=== PATIENT | female | born 1975 | race Caucasian/White ===

== ENCOUNTER 2022-09-16 12:47 | Outpatient (CLI) | payer OTHER, SELFPAY ==
--- NOTE | ~2022-09-16 | MMUS_ITS ---
EXAMINATION: MM diagnostic yadira BI w rosy, US breast BI complete HISTORY: Reportedly abnormal outside screening mammogram TECHNIQUE: Additional 3-D tomosynthesis images of both breasts were performed and synthetic 2-D image s were generated. CAD analysis was submitted and interpreted. High resolution bilateral complete maged st ultrasound including all 4 quadrants and subareolar areas was performed. COMPARISON: 08/26/2022 bilateral screening mammogram BREAST PARENCHYMAL COMPOSITION: There are scattered areas of fibroglandular density. FINDINGS: MAMMOGRAPHIC FINDINGS: No suspicious mass or architectural distortion, malignant calcification, skin thickening or retractio n is detected. ULTRASOUND: Right breast: 3:00 4 cm from nipple: Oval parallel circumscribed 3 x 3.8 mm x 4.4 mm sonolucency with through trans mission, likely a small cyst 9:00 5 cm from nipple: 2 x 2.5 mm circumscribed sonolucency No suspicious mass or shadowing of the right breast is detected Left breast: No suspicious mass or shadowing of the left breast is detected. No other significant son ographic finding. IMPRESSION: 1. No mammographic evidence of malignancy 2. Routine annual mammographic screening is recommended BI-RADS Category 2: Benign finding(s). Reviewed, dictated and finalized at location A. [facility] IMPRESSION: 1. No mammographic evidence of malignancy 2. Routine annual mammographic screening is recommended BI-RADS Category 2: Benign finding(s).
== END 2022-09-16 12:48 ==
LOC: MICIMG 12:50
PROVIDERS: PCP Nurse Practitioner; Visit Provider Nurse Practitioner
DX: R92.8 Other abnormal and inconclusive findings on diagnostic imaging of breast (principal)
CPT/HCPCS: 76641; 77062; 77066; G0279

== ENCOUNTER 2023-08-19 01:13 | Day surgery (SDC) | payer OTHER, SELFPAY ==
[2023-08-12 12:56] VITALS: BMI 32.0
[2023-08-19 11:57] VITALS: BP 115/70; PULSE 80; RESP 18; TEMP 36.6; O2SAT 98
[2023-08-19] MEDS: LACTATED RINGERS 1,000 ML 150 ML IV CONT (12:14)
--- NOTE | 2023-08-19 12:17 | PM.HPGS ---
History of Present Illness History of Present Illness Consent: Risks, benefits, and alternatives have been discussed and questions answered. Patient agrees to proceed with procedure. Chief complaint: neoplasm screening Narrative: Laura Christensen is a 47 year old female Presents for screening colonoscopy. Patient has current weight appetite bowel movements are normal. Patient denies abdominal pain. She has had no bleeding. Family history noncontributory. Review of Systems Review of Systems: Review of systems noncontributory. [facility] Past Medical History Medical History Abnormal mammogram of left breast Anxiety Combined hyperlipidemia Depression Hypothyroidism (acquired) Prediabetes Surgical History Surgical History No significant past surgical history Family History Family History Mother Hypertension Cerebrovascular accident Grandparent Lung cancer maternal grandparent Cancer paternal grandparent Social History Social History Smoking packs per day: 0.25 Smoking cigarettes per day: 5.0 Smoking status: Former smoker Tobacco type: cigarettes Alcohol intake: current Drinks per week: 3 Substance use: never Substance use type: does not use Lack of Transportation: No Lack of Food: Never True Current Housing: I Have Housing Concerned About Future Housing: No Difficulty Paying Gas/Electric Bills: No Difficulty Paying for Meds: No Currently Unemployed: No Education: High School Diploma/GED Difficulty w/ Childcare or Family Care: No Living arrangements: with family Additional living arrangements comments: Occupation/Education: occupation Gender identity (if verbalized by the patient): Female Sexual Orientation (if Verbalized by the Patient): Straight or Heterosexual Spiritual care concerns: No Agree to blood products: Yes Meds Home Medications and Allergies Home Medications Medication Instructions Recorded Confirmed Type bupropion HCl 150 mg 24 hr tablet, 150 mg PO QAM #90 tabs 06/10/23 08/12/23 Rx extended release (Wellbutrin XL) levothyroxine 88 mcg tablet 88 mcg PO DAILY #90 tabs 07/14/23 08/12/23 Rx bupropion HCl 300 mg 24 hr tablet, 300 mg PO QAM #90 tabs 08/12/23 08/19/23 Rx extended release (Wellbutrin XL) dextroamphetamine-amphetamine 10 10 mg PO DAILY #30 tabs 08/12/23 08/12/23 Rx mg tablet (Adderall) rosuvastatin 20 mg tablet (Crestor) 20 mg PO DAILY #90 tabs 08/12/23 08/19/23 Rx Allergies Allergy/AdvReac Type Severity Reaction Status Date / Time No Known Allergies Allergy Verified 08/19/23 11:53 Vital Signs Vital Signs - 24 hr 08/19/23 11:57 Temperature 97.8 F Pulse Rate 80 Respiratory Rate 18 Blood Pressure 115/70 Pulse Oximetry 98 Oxygen Delivery Room Air Exam Narrative: Physical exam reveals patient to be alert. Vital signs stable. HEENT exam is unremarkable. Patient is anicteric. Lungs are clear to auscultation and percussion. Heart is without murmur or extra sounds. Abdomen bowel sounds are present soft nontender with no organomegaly. Digital external rectal exam is normal. Assessment and Plan Assessment and plan (1) Colon cancer screening: Code(s): Z12.11 - Encounter for screening for malignant neoplasm of colon Status: Acute Assessment and Plan: Patient presents for screening colonoscopy. She appears to be at average risk for colon polyps. Further recommendations may be given after endoscopy.
--- NOTE | 2023-08-19 12:22 | WPDANESEPPF ---
Anes - Initial Pre Proc Eval Procedure: Operation Date: 08/19/23 13:00 Proposed Procedures p Screening Colonoscopy - Adonay Sow MD Date/Time: 08/19/23 12:22 Surgeon: Adonay Sow MD Pre Op Diagnosis: neoplasm screening Patient Data Age: 47 Gender: F Height: 1.73 m Weight: 90.2 kg Last Vital Signs Temp 97.8 F 08/19/23 11:57 Pulse 80 08/19/23 11:57 Resp 18 08/19/23 11:57 BP 115/70 08/19/23 11:57 Pulse Ox 98 08/19/23 11:57 O2 Del Method Room Air 08/19/23 11:57 Allergies Allergy/AdvReac Type Severity Reaction Status Date / Time No Known Allergies Allergy Verified 08/19/23 11:53 Home Medications Medication Instructions Recorded Confirmed Type bupropion HCl 150 mg 24 hr tablet, 150 mg PO QAM #90 tabs 06/10/23 08/12/23 Rx extended release (Wellbutrin XL) levothyroxine 88 mcg tablet 88 mcg PO DAILY #90 tabs 07/14/23 08/12/23 Rx bupropion HCl 300 mg 24 hr tablet, 300 mg PO QAM #90 tabs 08/12/23 08/19/23 Rx extended release (Wellbutrin XL) dextroamphetamine-amphetamine 10 10 mg PO DAILY #30 tabs 08/12/23 08/12/23 Rx mg tablet (Adderall) rosuvastatin 20 mg tablet (Crestor) 20 mg PO DAILY #90 tabs 08/12/23 08/19/23 Rx Patient hx anesthesia problems: none Family hx anesthesia problems: none Results Review: All pre-operative results and documents have been reviewed as part of the pre-operative evaluation. [facility] Past Medical History Medical History Abnormal mammogram of left breast Anxiety Combined hyperlipidemia Depression Hypothyroidism (acquired) Prediabetes Surgical History Surgical History No significant past surgical history Family History Family History Mother Hypertension Cerebrovascular accident Grandparent Lung cancer maternal grandparent Cancer paternal grandparent Social History Social History Smoking packs per day: 0.25 Smoking cigarettes per day: 5.0 Smoking status: Former smoker Tobacco type: cigarettes Alcohol intake: current Drinks per week: 3 Substance use: never Substance use type: does not use Lack of Transportation: No Lack of Food: Never True Current Housing: I Have Housing Concerned About Future Housing: No Difficulty Paying Gas/Electric Bills: No Difficulty Paying for Meds: No Currently Unemployed: No Education: High School Diploma/GED Difficulty w/ Childcare or Family Care: No Living arrangements: with family Additional living arrangements comments: Occupation/Education: occupation Gender identity (if verbalized by the patient): Female Sexual Orientation (if Verbalized by the Patient): Straight or Heterosexual Spiritual care concerns: No Agree to blood products: Yes Anes - Eval Final PreProcedure Day of Procedure 08/19/23 12:22 Patient weight: obese Heart: regular rate and rhythm Lungs: clear to auscultation Airway: Mallampati scale class II Neurological: alert and oriented Last oral intake: >/= 8 hours ASA classification: II Emergent: no Anesthetic plan: proceed Anesthesia type and monitoring: general GIVS and standard monitoring Results Review: All pre-operative results and documents have been reviewed as part of the pre-operative evaluation. Informed Consent: The patient's anesthetic plan and its attendant risks and benefits were discussed with the patient/family/POA. Questions were solicited and answers provided to the satisfaction of the patient/family/POA.
[2023-08-19 13:19] VITALS: BP 99/64; PULSE 68; RESP 23; O2SAT 99
[2023-08-19 13:29] VITALS: BP 106/65; PULSE 73; RESP 22; O2SAT 100
[2023-08-19 13:39] VITALS: BP 118/80; PULSE 70; RESP 14; O2SAT 100
== END 2023-08-19 13:45 | disposition home or self-care (01) ==
PROVIDERS: PCP Family Medicine; Visit Provider Internal Medicine Gastroenterology
PROC: 0DJD8ZZ Inspection of Lower Intestinal Tract, Via Natural or Artificial Opening Endoscopic (ICD-10-PCS; CPT 45378; principal; 2023-08-19 13:00)
DX: Z12.11 Encounter for screening for malignant neoplasm of colon (principal); D12.2 Benign neoplasm of ascending colon; D12.5 Benign neoplasm of sigmoid colon; K63.5 Polyp of colon; K57.30 Diverticulosis of large intestine without perforation or abscess without bleeding; K64.8 Other hemorrhoids; E03.9 Hypothyroidism, unspecified; F41.9 Anxiety disorder, unspecified; F32.A Depression, unspecified; Z87.891 Personal history of nicotine dependence; E66.9 Obesity, unspecified; Z68.30 Body mass index [BMI] 30.0-30.9, adult
CPT/HCPCS: 45385; 88305; J2704; J7120